=== PATIENT | male | born 1995 | race Two or more races ===

== ENCOUNTER 2019-07-15 03:42 | Inpatient (IN) | payer OTHER ==
[~2019-07-15] VITALS: Ht 170.2 cm; Wt 56.7 kg
[2019-07-18] MEDS ORDERED: PANTOPRAZOLE SO40 MG PO (15:33)
[2019-07-18] MEDS ORDERED: AMOX1TAB5 PO (15:33)
[2019-07-18] MEDS ORDERED: HIBICLENS118 ML TOP (15:34)
== END 2019-07-18 15:51 | disposition home or self-care (01) | DRG 988 ==
LOC: ER 03:42 → SEC-K 07:33 → SURG 07:33 → O/R 07:33 → SURG 08:02 → O/R 08:10 → SURG 11:36
PROVIDERS: ADMIT Surgery
PROC: 3E0T3BZ Introduction of Anesthetic Agent into Peripheral Nerves and Plexi, Percutaneous Approach (ICD-10-PCS; 2019-07-15)
PROC: 0J9B0ZZ Drainage of Perineum Subcutaneous Tissue and Fascia, Open Approach (ICD-10-PCS; principal; 2019-07-15 09:00)
DX: K62.89 Other specified diseases of anus and rectum (principal); K61.2 Anorectal abscess; B96.29 Other Escherichia coli [E. coli] as the cause of diseases classified elsewhere; B95.4 Other streptococcus as the cause of diseases classified elsewhere

== ENCOUNTER 2020-05-27 00:11 | Emergency (ER) | payer OTHER ==
[~2020-05-27] VITALS: Ht 170.2 cm; Wt 102.1 kg
[~2020-05-27 00:11] MED LIST: AMOX1TAB5 PO; HIBICLENS118 ML TOP; PANTOPRAZOLE SO40 MG PO
[2020-05-27] MEDS ORDERED: PEPCID40 MG PO (06:45)
[2020-05-27] MEDS ORDERED: ZOFRAN8 M1 PO (06:45)
== END 2020-05-27 07:42 | disposition home or self-care (01) ==
LOC: ER 00:11
DX: K29.60 Other gastritis without bleeding (principal)